=== PATIENT | female | born 1975 | race Caucasian/White ===

== ENCOUNTER 2016-08-16 16:19 | Emergency (ER) | payer OTHER ==
[~2016-08-16 16:19] MED LIST: FLEXERIL10 MG PO; LORTAB 10-5001 EACH PO; LORTAB 10/500 T1 TAB PO; MOBIC PO; NAPROSYN500 MG PO; PEN-VEE K PO; VOLTAREN50 MG PO
== END 2016-08-16 16:36 | disposition home or self-care (01) ==
LOC: SED 16:19
DX: K04.7 Periapical abscess without sinus (principal); F17.210 Nicotine dependence, cigarettes, uncomplicated
CPT/HCPCS: 99282

== ENCOUNTER 2016-10-12 17:19 | Emergency (ER) | payer SELFPAY ==
--- NOTE | ~2016-10-12 | CR262 ---
[facility], [place]. [facility] A Service of [facility] & [facility] RADIOLOGY TEXT RESULTS PATIENT: ROSALIO BEAN LOCATION: SED : 75 UNIT #: [id number] AGE: [address]: Joel Kaur MD SEX: F ORDER DR: [id number] [place] [id number] E MR#: [id number] #: [id number] NAME: ROSALIO BEAN : 1975 SEX: F STUDY DATE/TIME: 10/12/2016 18:29 UNIT: SED ROOM: STUDY DESCRIPTION: CR Toe 2 Views Great Lt Attending Physician: Joel Kaur M.D. Ordering Physician: Joel Kaur M.D. MEDICAL IMAGING REPORT This report is preliminary unless electronic signature is present. EXAM Left great toe, 3 views HISTORY Toe injury 5 days ago with persistent pain. Struck toe. FINDINGS 3 views of the left great toe are negative. Normal bone alignment. No fracture or joint space narrowing or dislocation. IMPRESSION Negative. Dictated by... Blue Khan M.D. THIS IS AN ELECTRONICALLY VERIFIED REPORT Blue Khan M.D. at 10/13/2016 1:48 PM DFL/psc TD: 10/12/2016 23:03 JOB #: [id number] MEDICAL IMAGING REPORT Page 1 of 1
[2016-10-12] MEDS ORDERED: HYDROCODON-ACE1 EAC7 PO (19:07)
== END 2016-10-12 19:07 | disposition home or self-care (01) ==
LOC: SED 17:19
DX: S90.112A Contusion of left great toe without damage to nail, initial encounter (principal); F17.210 Nicotine dependence, cigarettes, uncomplicated; W22.8XXA Striking against or struck by other objects, initial encounter
CPT/HCPCS: 29550; 73660; 99283

== ENCOUNTER 2016-10-25 17:44 | Emergency (ER) | payer SELFPAY ==
[~2016-10-25 17:44] MED LIST changes: +HYDROCODON-ACE1 EAC7 PO
== END 2016-10-25 18:36 | disposition home or self-care (01) ==
LOC: SED 17:44
DX: Z76.0 Encounter for issue of repeat prescription (principal); F17.200 Nicotine dependence, unspecified, uncomplicated
CPT/HCPCS: 99282